=== PATIENT | female | born 1995 | race Hispanic/Latino ===

== ENCOUNTER 2018-09-01 07:52 | Inpatient (IN) | payer MEDICAID ==
[2018-09-01] MEDS ORDERED: Nalbuphine 20 MG/ML 1 ML Syringe IVPUSH PRN (14:42)
[2018-09-01] MEDS ORDERED: Sodium Chloride 0.9% 10 ML Syringe FLUSH PRN (14:42)
[2018-09-01] MEDS ORDERED: Ondansetron 4 MG/2 ML SDV IVPUSH PRN (14:42)
[2018-09-01] MEDS ORDERED: Oxytocin/Lactated Ringers 10 UNIT/1,000 ML BAG IV SCH ×2 (14:45)
--- NOTE | 2018-09-01 17:38 | PCM.LDHP ---
L&D History of Present Illness - General Date of Service: 09/01/18 Admit Problem/Dx: Patient Status Order with Admit Dx/Problem 09/01/18 14:53 Patient Status [ADT] Routine Admission Diagnosis/Problem Admission Diagnosis/Problem Source of Information: Patient History Limitations: Reports: No Limitations - History of Present Illness Introduction:: Patient is a 22 y/o at 37 0/7 wks who presents for IOL for gestational HTN. Last notable for preeclampsia at 33 weeks requiring IOL. Has been doing well this . Last week had an upper limit of normal BP. Today in clinic had 2 mild range BP's. Feeling well overall. Notes good FM. No other concerns - Related Data Allergies/Adverse Reactions: Allergies Allergy/AdvReac Type Severity Reaction Status Date / Time No Known Allergies Allergy Verified 09/01/18 18:08 Past Medical History Cardiovascular History: Reports: Other (See Below) (Hx of preeclampsia) [employer]ACHINE History: Reports: : 2 Para: 1 - Past Surgical History Other Surgical History Comment: Denies surgical history Social & Family History - Family History Family Medical History: Noncontributory - Tobacco Use Smoking Status *Q: Never Smoker Second Hand Smoke Exposure: No - Caffeine Use Caffeine Use: Reports: None - Alcohol Use Alcohol Use History: No - Recreational Drug Use Recreational Drug Use: No H&P Review of Systems - Review of Systems: Review Of Systems: See Below General: Reports: No Symptoms Pulmonary: Reports: No Symptoms Cardiovascular: Reports: No Symptoms Gastrointestinal: Reports: No Symptoms Genitourinary: Reports: No Symptoms Musculoskeletal: Reports: No Symptoms Psychiatric: Reports: No Symptoms Neurological: Reports: No Symptoms L&D Exam - Exam Exam: See Below - Vital Signs Vital Signs: Last Vital Signs Temp 36.4 C 09/01/18 14:58 Pulse 78 09/01/18 14:58 Resp 14 09/01/18 14:58 BP 128/84 09/01/18 14:58 Pulse Ox 97 09/01/18 14:58 Weight: 70.307 kg - OB Specific Contraction Intensity: Irritability Movement: Active Heart Tones: Present Heart Tones per Min: 140 Heart Rate (FHR) Variability: Moderate (6-25 bmp) Presentation: Vertex - Peraza Score Peraza Score Cervix Position: Midposition Peraza Score Consistency: Soft Peraza Score Effacement: 51-70% Peraza Score Dilation: 1-2 cm Peraza Score Infant's Station: -2 Peraza Score Total: 7 - Exam General: Alert, Oriented, Cooperative Lungs: Clear to Auscultation, Normal Respiratory Effort Cardiovascular: Regular Rate, Regular Rhythm GI/Abdominal Exam: Soft, Non-Tender Genitourinary: Normal external exam Extremities: Normal Inspection Skin: Warm, Dry, Intact - Patient Data Lab Results Last 24 hrs: Laboratory Results - last 24 hr 09/01/18 09/01/18 09/01/18 Range/Units 15:10 15:13 15:15 WBC 12.72 H (3.98-10.04) K/mm3 RBC 4.44 (3.98-5.22) M/mm3 Hgb 13.8 (11.2-15.7) gm/L Hct 40.3 (34.1-44.9) % MCV 90.8 (79.4-94.8) fl MCH 31.1 (25.6-32.2) pg MCHC 34.2 (32.2-35.5) g/dl RDW Std Deviation 42.1 (36.4-46.3) fL Plt Count 257 (182-369) K/mm3 MPV 9.0 L (9.4-12.3) fl Neut % (Auto) 77.4 H (34.0-71.1) % Lymph % (Auto) 13.4 L (19.3-51.7) % [place] % (Auto) 6.7 (4.7-12.5) % Eos % (Auto) 1.5 (0.7-5.8) Baso % (Auto) 0.2 (0.1-1.2) % Neut # (Auto) 9.84 H (1.56-6.13) K/mm3 Lymph # (Auto) 1.71 (1.18-3.74) K/mm3 [place] # (Auto) 0.85 H (0.24-0.36) K/mm3 Eos # (Auto) 0.19 (0.04-0.36) K/mm3 Baso # (Auto) 0.03 (0.01-0.08) K/mm3 RPR Non-reactive (NONREACTIVE) Blood Type O POSITIVE Gel Antibody Screen Negative Result Diagrams: 09/01/18 15:13 09/01/18 15:10 - Problem List (1) 37 weeks gestation of SNOMED Code(s): 48720885 ICD Code: Z3A.37 - 37 WEEKS GESTATION OF Status: Acute Current Visit: Yes (2) Gestational hypertension SNOMED Code(s): 010602113 ICD Code: O13.9 - GESTATIONAL HTN W/O SIGNIFICANT PROTEINURIA, UNSP TRIMESTER Status: Acute Current Visit: Yes Qualifiers: Trimester: third trimester Qualified Code(s): O13.3 - Gestational [ -induced] hypertension without significant proteinuria, third trimester (3) History of pre-eclampsia in prior , currently SNOMED Code(s): 361442991750068, 326631057357306 ICD Code: O09.299 - SUPRVSN OF PREG W POOR REPRODCTV OR OBSTET HISTORY, UNSP TRI Status: Acute Current Visit: Yes (4) GBS (group B Streptococcus carrier), +RV culture, currently SNOMED Code(s): 3148873529770, 161553137, 5536877497688 ICD Code: O99.820 - STREPTOCOCCUS B CARRIER STATE COMPLICATING Status: Acute Current Visit: Yes Problem List Initiated/Reviewed/Updated: Yes Orders Last 24hrs: Active Orders 24 hr Category Date Time Status Patient Status [ADT] Routine ADT 09/01/18 14:53 Active Activity as Tolerated [RC] PFP Care 09/01/18 14:53 Active Communication Order [RC] ASDIRECTED Care 09/01/18 14:53 Active Heart Tones [RC] ASDIRECTED Care 09/01/18 14:54 Active Non Stress Test [RC] PER UNIT ROUTINE Care 09/01/18 14:53 Active Notify Provider [RC] PFP Care 09/01/18 14:53 Active Notify Provider [RC] PRN Care 09/01/18 14:53 Active Peripheral IV Care [RC] . DIRECTED Care 09/01/18 14:54 Active Vital Signs [RC] PER UNIT ROUTINE Care 09/01/18 14:53 Active Regular Diet [DIET] Diet 09/01/18 Lunch Active ALANINE AMINOTRANSFERASE,ALT [CHEM] Routine Lab 09/01/18 17:37 Ordered ASPARTATE AMNIOTRANSFERASE,AST [CHEM] Routine Lab 09/01/18 17:37 Ordered CREATININE W/GFR [CHEM] Routine Lab 09/01/18 17:37 Ordered PATIENT RETYPE [BBK] Routine Lab 09/01/18 16:28 Results PROTEIN/CREATININE RATIO,URINE [URCHEM] Routine Lab 09/01/18 17:37 Ordered Lactated Ringers [Ringers, Lactated] 1,000 ml Med 09/01/18 14:45 Active IV ASDIRECTED Nalbuphine [Nubain] Med 09/01/18 14:42 Ordered 10 mg IVPUSH Q2H PRN Ondansetron [Zofran] Med 09/01/18 14:42 Ordered 4 mg IVPUSH Q4H PRN Oxytocin/Lactated Ringers [Pitocin in LR 10 Units/1,000 Med 09/01/18 14:45 Ordered ML] 10 unit in 1,000 ml IV .CONTINUOUS Oxytocin/Lactated Ringers [Pitocin in LR 10 Units/1,000 Med 09/01/18 14:45 Ordered ML] 10 unit in 1,000 ml IV TITRATE Penicillin G Potassium [Pfizerpen] 2.5 millunits [facility] 09/01/18 14:45 Ordered Sodium Chloride 0.9% [Normal Saline] 100 ml IV Q4H Penicillin G Potassium [Pfizerpen] 5 millunits [facility] 09/01/18 14:45 Ordered Sodium Chloride 0.9% [Normal Saline] 100 ml IV ONETIME Sodium Chloride 0.9% [Saline Flush] [facility] 09/01/18 14:42 Ordered 10 ml FLUSH ASDIRECTED PRN Electronic Heart Tones Ext w TOCO [WOMSER] Ot 09/01/18 14:53 Ordered Routine Electronic Heart Tones Internal [WOMSER] Per Unit Ot 09/01/18 14:53 Ordered Routine Peripheral IV Insertion Adult [OM.PC] Routine Oth 09/01/18 14:53 Ordered Resuscitation Status Routine Resus Stat 09/01/18 14:42 Ordered Medication Orders Lactated Ringer's (Ringers, Lactated) 1,000 mls @ 100 mls/hr IV ASDIRECTED MARCK Oxytocin/Lactated Ringer's (Pitocin In Lr 10 Units/1,000 Ml) 10 unit in 1,000 mls @ 12 mls/hr IV TITRATE MARCK; Protocol Oxytocin/Lactated Ringer's (Pitocin In Lr 10 Units/1,000 Ml) 10 unit in 1,000 mls @ 500 mls/hr IV .CONTINUOUS MARCK Penicillin G Potassium 5 (millunits/ Sodium Chloride) 100 mls @ 55 mls/hr IV ONETIME MARCK Penicillin G Potassium 2.5 (millunits/ Sodium Chloride) 100 mls @ 55 mls/hr IV Q4H MARCK Nalbuphine HCl (Nubain) 10 mg IVPUSH Q2H PRN PRN Reason: pain Ondansetron HCl (Zofran) 4 mg IVPUSH Q4H PRN PRN Reason: Nausea/Vomiting Sodium Chloride (Saline Flush) 10 ml FLUSH ASDIRECTED PRN PRN Reason: Keep Vein Open Assessment/Plan Comment:: 22 y/o at 37 0/7 wks who presents for IOL for gestational HTN. * Baseline labs * GBS positive, will start PCN * Pitocin to be started in induction, eventually AROM * Pain management per patient preference * Anticipate
[2018-09-01] MEDS ORDERED: Penicillin G Potassium 5 MILLUNITS in Sodium Chloride 0.9% 100 ML IV ONE (19:15)
[2018-09-01] MEDS: Lactated Ringers 1,000 ML IV SCH (19:59)
[2018-09-02] MEDS: Penicillin G Potassium 2.5 MILLUNITS in Sodium Chloride 0.9% 100 ML IV SCH ×3 (00:40→20:59)
[2018-09-02] MEDS ORDERED: Bupivacaine 0.25% 10 ML SDV ONE (06:00)
[2018-09-02] MEDS ORDERED: Ondansetron 4 MG/2 ML SDV IVPUSH PRN (06:29)
[2018-09-02] MEDS ORDERED: fentaNYL 100 MCG/2 ML SDV ONE (06:29)
[2018-09-02] MEDS ORDERED: fentaNYL/Bupivacaine-NS 2 MCG/ML-0.125%/PF 100 ML Bag EPIDUR PRN (06:29)
[2018-09-02] MEDS ORDERED: diphenhydrAMINE 50 MG/ML SDV IVPUSH PRN (06:29)
[2018-09-02] MEDS ORDERED: ePHEDrine 50 MG/ML SDV IVPUSH PRN (06:29)
[2018-09-02] MEDS ORDERED: fentaNYL 100 MCG/2 ML SDV EPIDUR PRN (06:29)
[2018-09-02] MEDS: Lactated Ringers 1,000 ML IV SCH (06:45)
--- NOTE | 2018-09-02 07:01 | PCM.PREANE ---
Preanesthetic Assessment - Anesthesia/Transfusion/Family Hx Anesthesia History: Prior Anesthesia Without Reaction Transfusion History: No Prior Transfusion(s) - Review of Systems General: No Symptoms Pulmonary: No Symptoms Cardiovascular: No Symptoms Gastrointestinal: No Symptoms Neurological: No Symptoms Other: Reports: None - Physical Assessment Pulse: 93 O2 Sat by Pulse Oximetry: 97 Respiratory Rate: 14 Blood Pressure: 132/77 Temperature: 36.6 C Vital Signs: Last Vital Signs Temp 36.6 C 09/01/18 20:02 Pulse 93 09/01/18 20:02 Resp 14 09/01/18 20:02 BP 132/77 09/01/18 20:02 Pulse Ox 97 09/01/18 20:02 Height: 1.55 m Weight: 70.307 kg ASA Class: 2 Mental Status: Alert & Oriented x3 Airway Class: Mallampati = 1 Dentition: Reports: Normal Dentition Thyro-Mental Finger Breadths: 3 Mouth Opening Finger Breadths: 3 ROM/Head Extension: Full Lungs: Clear to Auscultation, Normal Respiratory Effort Cardiovascular: Regular Rate, Regular Rhythm - Lab Values: Laboratory Last Values WBC 12.72 K/mm3 (3.98-10.04) H 09/01/18 15:13 RBC 4.44 M/mm3 (3.98-5.22) 09/01/18 15:13 Hgb 13.8 gm/L (11.2-15.7) 09/01/18 15:13 Hct 40.3 % (34.1-44.9) 09/01/18 15:13 MCV 90.8 fl (79.4-94.8) 09/01/18 15:13 MCH 31.1 pg (25.6-32.2) 09/01/18 15:13 MCHC 34.2 g/dl (32.2-35.5) 09/01/18 15:13 RDW Std Deviation 42.1 fL (36.4-46.3) 09/01/18 15:13 Plt Count 257 K/mm3 (182-369) 09/01/18 15:13 MPV 9.0 fl (9.4-12.3) L 09/01/18 15:13 Neut % (Auto) 77.4 % (34.0-71.1) H 09/01/18 15:13 Lymph % (Auto) 13.4 % (19.3-51.7) L 09/01/18 15:13 [place] % (Auto) 6.7 % (4.7-12.5) 09/01/18 15:13 Eos % (Auto) 1.5 (0.7-5.8) 09/01/18 15:13 Baso % (Auto) 0.2 % (0.1-1.2) 09/01/18 15:13 Neut # (Auto) 9.84 K/mm3 (1.56-6.13) H 09/01/18 15:13 Lymph # (Auto) 1.71 K/mm3 (1.18-3.74) 09/01/18 15:13 [place] # (Auto) 0.85 K/mm3 (0.24-0.36) H 09/01/18 15:13 Eos # (Auto) 0.19 K/mm3 (0.04-0.36) 09/01/18 15:13 Baso # (Auto) 0.03 K/mm3 (0.01-0.08) 09/01/18 15:13 Creatinine 0.6 mg/dL (0.55-1.02) 09/01/18 15:10 Est Cr Clr Drug Dosing 110.04 mL/min 09/01/18 15:10 Estimated GFR (MDRD) > 60 mL/min (>60) 09/01/18 15:10 AST 19 U/L (15-37) 09/01/18 15:10 ALT 26 U/L (14-59) 09/01/18 15:10 Ur Random Creatinine 116.7 mg/dL (30.0-125.0) 09/01/18 22:40 U Random Total Protein 15.5 mg/dL (0.0-11.8) H 09/01/18 22:40 Protein/Creatinin Ratio 132.8 mg/g (0-149) 09/01/18 22:40 RPR Non-reactive (NONREACTIVE) 09/01/18 15:15 Blood Type O POSITIVE 09/01/18 15:10 Gel Antibody Screen Negative 09/01/18 15:10 - Allergies Allergies/Adverse Reactions: Allergies Allergy/AdvReac Type Severity Reaction Status Date / Time No Known Allergies Allergy Verified 09/01/18 18:08 - Acknowledgements Anesthesia Type Planned: Epidural Pt an Appropriate Candidate for the Planned Anesthesia: Yes Alternatives and Risks of Anesthesia Discussed w Pt/Guardian: Yes Pt/Guardian Understands and Agrees with Anesthesia Plan: Yes PreAnesthesia Questionnaire - Past Health History Medical/Surgical History: Denies Medical/Surgical History Cardiovascular History: Reports: Other (See Below) (Hx of preeclampsia) 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: - Past Surgical History Other Surgical History Comment: Denies surgical history - SUBSTANCE USE Smoking Status *Q: Never Smoker Second Hand Smoke Exposure: No Recreational Drug Use History: No - CURRENT (IN HOUSE) MEDS Current Meds: Current Medications Diphenhydramine HCl (Benadryl) 25 mg IVPUSH Q6H PRN PRN Reason: Pruritis Ephedrine Sulfate (Ephedrine Sulfate) 5 mg IVPUSH ASDIRECTED PRN PRN Reason: Hypotension Fentanyl (Sublimaze) 100 mcg EPIDUR ONETIME PRN PRN Reason: Pain Last Admin: 09/02/18 06:57 Dose: 100 mcg Fentanyl/Bupivacaine HCl ([id number]-Jcyha-Hd 2 Mcg/Ml-0.125%) 100 ml EPIDUR ASDIRECTED PRN PRN Reason: Abdominal Pain Last Admin: 09/02/18 06:58 Dose: 100 ml Lactated Ringer's (Ringers, Lactated) 1,000 mls @ 100 mls/hr IV ASDIRECTED MARCK Last Admin: 09/02/18 06:45 Dose: 100 mls/hr Oxytocin/Lactated Ringer's (Pitocin In Lr 10 Units/1,000 Ml) 10 unit in 1,000 mls @ 12 mls/hr IV TITRATE AMRCK; Protocol Last Titration: 09/02/18 03:10 Dose: 6 munits/min, 36 mls/hr Oxytocin/Lactated Ringer's (Pitocin In Lr 10 Units/1,000 Ml) 10 unit in 1,000 mls @ 500 mls/hr IV .CONTINUOUS MARCK Penicillin G Potassium 2.5 (millunits/ Sodium Chloride) 100 mls @ 55 mls/hr IV Q4H MARCK Last Admin: 09/02/18 04:22 Dose: 55 mls/hr Nalbuphine HCl (Nubain) 10 mg IVPUSH Q2H PRN PRN Reason: pain Ondansetron HCl (Zofran) 4 mg IVPUSH Q4H PRN PRN Reason: Nausea/Vomiting Ondansetron HCl (Zofran) 4 mg IVPUSH ONETIME PRN PRN Reason: Nausea/Vomiting Sodium Chloride (Saline Flush) 10 ml FLUSH ASDIRECTED PRN PRN Reason: Keep Vein Open Discontinued Medications Fentanyl (Sublimaze) Confirm Administered Dose 100 mcg .ROUTE .STK-MED ONE Stop: 09/02/18 06:30 Last Admin: 09/02/18 06:46 Dose: Not Given Penicillin G Potassium 5 (millunits/ Sodium Chloride) 100 mls @ 55 mls/hr IV ONETIME ONE Stop: 09/01/18 21:04 Last Admin: 09/01/18 19:59 Dose: 55 mls/hr
--- NOTE | 2018-09-02 08:02 | PCM.DEL ---
L & D Note - General Info Date of Service: 09/02/18 - Delivery Note Labor: Induced by ARM, Induced by Oxytocin Delivery Outcome: Livebirth Infant Delivery Method: Spontaneous Vaginal Delivery-Single Infant Delivery Mode: Spontaneous Presentation: Left Occiput Anterior (GARRY) Nuchal Cord: None Anesthesia Type: Epidural Amniotic Fluid Description: Clear Episiotomy Type: None Laceration: None Placenta: Intact, Spontaneous Cord: 3 Vessels Estimated Blood Loss: 200 : Bulb Syringe, Stimulated, Warmed, [place] Used, Warmer Used Delivery Comments (Free Text/Narrative):: Patient found to be complete an began pushing. With maternal pushing effort head delivered from an GARRY presentation. No nuchal cord present. With gentle downward traction the shoulders and body delivered. Infant placed on maternal abdomen. Cord clamped and cut. Cord blood obtained. Placenta allowed time to separate and expelled intact. Inspection of the perineum showed no lacerations - General Info Date of Service: 09/02/18 - Patient Data Vitals - Most Recent: Last Vital Signs Temp 36.6 C 09/02/18 07:00 Pulse 93 09/02/18 07:00 Resp 14 09/02/18 07:00 BP 132/77 09/02/18 07:00 Pulse Ox 97 09/02/18 07:00 Weight - Most Recent: 70.307 kg Lab Results Last 24 Hours: Laboratory Results - last 24 hr 09/01/18 09/01/18 09/01/18 Range/Units 15:10 15:10 15:13 WBC 12.72 H (3.98-10.04) K/mm3 RBC 4.44 (3.98-5.22) M/mm3 Hgb 13.8 (11.2-15.7) gm/L Hct 40.3 (34.1-44.9) % MCV 90.8 (79.4-94.8) fl MCH 31.1 (25.6-32.2) pg MCHC 34.2 (32.2-35.5) g/dl RDW Std Deviation 42.1 (36.4-46.3) fL Plt Count 257 (182-369) K/mm3 MPV 9.0 L (9.4-12.3) fl Neut % (Auto) 77.4 H (34.0-71.1) % Lymph % (Auto) 13.4 L (19.3-51.7) % [place] % (Auto) 6.7 (4.7-12.5) % Eos % (Auto) 1.5 (0.7-5.8) Baso % (Auto) 0.2 (0.1-1.2) % Neut # (Auto) 9.84 H (1.56-6.13) K/mm3 Lymph # (Auto) 1.71 (1.18-3.74) K/mm3 [place] # (Auto) 0.85 H (0.24-0.36) K/mm3 Eos # (Auto) 0.19 (0.04-0.36) K/mm3 Baso # (Auto) 0.03 (0.01-0.08) K/mm3 Creatinine 0.6 (0.55-1.02) mg/dL Est Cr Clr Drug Dosing 110.04 mL/min Estimated GFR (MDRD) > 60 (>60) mL/min AST 19 (15-37) U/L ALT 26 (14-59) U/L Ur Random Creatinine (30.0-125.0) mg/dL U Random Total Protein (0.0-11.8) mg/dL Protein/Creatinin Ratio (0-149) mg/g RPR (NONREACTIVE) Blood Type O POSITIVE Gel Antibody Screen Negative 09/01/18 09/01/18 Range/Units 15:15 22:40 WBC (3.98-10.04) K/mm3 RBC (3.98-5.22) M/mm3 Hgb (11.2-15.7) gm/L Hct (34.1-44.9) % MCV (79.4-94.8) fl MCH (25.6-32.2) pg MCHC (32.2-35.5) g/dl RDW Std Deviation (36.4-46.3) fL Plt Count (182-369) K/mm3 MPV (9.4-12.3) fl Neut % (Auto) (34.0-71.1) % Lymph % (Auto) (19.3-51.7) % [place] % (Auto) (4.7-12.5) % Eos % (Auto) (0.7-5.8) Baso % (Auto) (0.1-1.2) % Neut # (Auto) (1.56-6.13) K/mm3 Lymph # (Auto) (1.18-3.74) K/mm3 [place] # (Auto) (0.24-0.36) K/mm3 Eos # (Auto) (0.04-0.36) K/mm3 Baso # (Auto) (0.01-0.08) K/mm3 Creatinine (0.55-1.02) mg/dL Est Cr Clr Drug Dosing mL/min Estimated GFR (MDRD) (>60) mL/min AST (15-37) U/L ALT (14-59) U/L Ur Random Creatinine 116.7 (30.0-125.0) mg/dL U Random Total Protein 15.5 H (0.0-11.8) mg/dL Protein/Creatinin Ratio 132.8 (0-149) mg/g RPR Non-reactive (NONREACTIVE) Blood Type Gel Antibody Screen Med Orders - Current: Current Medications Diphenhydramine HCl (Benadryl) 25 mg IVPUSH Q6H PRN PRN Reason: Pruritis Ephedrine Sulfate (Ephedrine Sulfate) 5 mg IVPUSH ASDIRECTED PRN PRN Reason: Hypotension Fentanyl (Sublimaze) 100 mcg EPIDUR ONETIME PRN PRN Reason: Pain Last Admin: 09/02/18 06:57 Dose: 100 mcg Fentanyl/Bupivacaine HCl (Xuvvgiih-Cswjc-Yj 2 Mcg/Ml-0.125%) 100 ml EPIDUR ASDIRECTED PRN PRN Reason: Abdominal Pain Last Admin: 09/02/18 06:58 Dose: 100 ml Lactated Ringer's (Ringers, Lactated) 1,000 mls @ 100 mls/hr IV ASDIRECTED MARCK Last Admin: 09/02/18 06:45 Dose: 100 mls/hr Oxytocin/Lactated Ringer's (Pitocin In Lr 10 Units/1,000 Ml) 10 unit in 1,000 mls @ 12 mls/hr IV TITRATE MARCK; Protocol Last Titration: 09/02/18 03:10 Dose: 6 munits/min, 36 mls/hr Oxytocin/Lactated Ringer's (Pitocin In Lr 10 Units/1,000 Ml) 10 unit in 1,000 mls @ 500 mls/hr IV .CONTINUOUS MARCK Penicillin G Potassium 2.5 (millunits/ Sodium Chloride) 100 mls @ 55 mls/hr IV Q4H MARCK Last Admin: 09/02/18 04:22 Dose: 55 mls/hr Nalbuphine HCl (Nubain) 10 mg IVPUSH Q2H PRN PRN Reason: pain Ondansetron HCl (Zofran) 4 mg IVPUSH Q4H PRN PRN Reason: Nausea/Vomiting Ondansetron HCl (Zofran) 4 mg IVPUSH ONETIME PRN PRN Reason: Nausea/Vomiting Sodium Chloride (Saline Flush) 10 ml FLUSH ASDIRECTED PRN PRN Reason: Keep Vein Open Discontinued Medications Fentanyl (Sublimaze) Confirm Administered Dose 100 mcg .ROUTE .STK-MED ONE Stop: 09/02/18 06:30 Last Admin: 09/02/18 06:46 Dose: Not Given Penicillin G Potassium 5 (millunits/ Sodium Chloride) 100 mls @ 55 mls/hr IV ONETIME ONE Stop: 09/01/18 21:04 Last Admin: 09/01/18 19:59 Dose: 55 mls/hr - Problem List & Annotations (1) 37 weeks gestation of SNOMED Code(s): 59963482 Code(s): Z3A.37 - 37 WEEKS GESTATION OF Status: Acute Current Visit: Yes (2) Gestational hypertension SNOMED Code(s): 661221787 Code(s): O13.9 - GESTATIONAL HTN W/O SIGNIFICANT PROTEINURIA, UNSP TRIMESTER Status: Acute Current Visit: Yes Qualifiers: Trimester: third trimester Qualified Code(s): O13.3 - Gestational [ -induced] hypertension without significant proteinuria, third trimester (3) History of pre-eclampsia in prior , currently SNOMED Code(s): 025065283742210, 729197652425569 Code(s): O09.299 - SUPRVSN OF PREG W POOR REPRODCTV OR OBSTET HISTORY, UNSP TRI Status: Acute Current Visit: Yes (4) GBS (group B Streptococcus carrier), +RV culture, currently SNOMED Code(s): 7455844632623, 232552549, 2865545411376 Code(s): O99.820 - STREPTOCOCCUS B CARRIER STATE COMPLICATING Status: Acute Current Visit: Yes (5) Vaginal delivery SNOMED Code(s): 932553556 Code(s): O80 - ENCOUNTER FOR FULL-TERM UNCOMPLICATED DELIVERY Status: Acute Current Visit: Yes - Problem List Review Problem List Initiated/Reviewed/Updated: Yes - My Orders Last 24 Hours: My Active Orders 09/01/18 14:42 Nalbuphine [Nubain] 10 mg IVPUSH Q2H PRN Ondansetron [Zofran] 4 mg IVPUSH Q4H PRN Sodium Chloride 0.9% [Saline Flush] 10 ml FLUSH ASDIRECTED PRN Resuscitation Status Routine 09/01/18 14:45 Lactated Ringers [Ringers, Lactated] 1,000 ml IV ASDIRECTED Oxytocin/Lactated Ringers [Pitocin in LR 10 Units/1,000 ML] 10 unit in 1,000 ml IV .CONTINUOUS Oxytocin/Lactated Ringers [Pitocin in LR 10 Units/1,000 ML] 10 unit in 1,000 ml IV TITRATE 09/01/18 14:53 Patient Status [ADT] Routine Activity as Tolerated [RC] PFP Communication Order [RC] ASDIRECTED Notify Provider [RC] PFP Notify Provider [RC] PRN Vital Signs [RC] PER UNIT ROUTINE Electronic Heart Tones Ext w TOCO [WOMSER] Routine Electronic Heart Tones Internal [WOMSER] Per Unit Routine Peripheral IV Insertion Adult [OM.PC] Routine 09/01/18 14:54 Heart Tones [RC] ASDIRECTED Peripheral IV Care [RC] . DIRECTED 09/01/18 16:28 PATIENT RETYPE [BBK] Routine 09/01/18 Lunch Regular Diet [DIET] 09/02/18 00:00 Penicillin G Potassium [Pfizerpen] 2.5 millunits Sodium Chloride 0.9% [Normal Saline] 100 ml IV Q4H - Assessment Assessment:: 22 y/o G2 now P1102 PPD#0 from at 37 1/7 wks - Plan Plan:: * Routine cares * Encourage breast feeding * Monitor BP's closely * Discharge home in 1-2 day s
[2018-09-02] MEDS ORDERED: Docusate Sodium 100 MG Cap PO PRN (08:42)
[2018-09-02] MEDS ORDERED: Acetaminophen 325 MG Tab PO PRN (08:42)
[2018-09-02] MEDS ORDERED: Lanolin 100% Cream 7 GM Tube TOP PRN (08:42)
[2018-09-02] MEDS ORDERED: Benzocaine/Menthol 20%-0.5% Spray 56 GM Canister TOP PRN (08:42)
[2018-09-02] MEDS ORDERED: Witch Hazel Medicated Pads 40/Jar TOP PRN (08:42)
[2018-09-02] MEDS: Ibuprofen 600 MG Tab PO PRN ×2 (16:08→21:56)
--- NOTE | 2018-09-03 07:22 | PCM.PNPP ---
- General Info Date of Service: 09/03/18 Functional Status: Reports: Pain Controlled, Tolerating Diet, Ambulating, Urinating - Review of Systems General: Reports: No Symptoms Pulmonary: Reports: No Symptoms Cardiovascular: Reports: No Symptoms Gastrointestinal: Reports: No Symptoms, Hematochezia Neurological: Denies: Headache - Patient Data Vital Signs - Most Recent: Last Vital Signs Temp 36.6 C 09/03/18 03:28 Pulse 67 09/03/18 03:28 Resp 14 09/03/18 03:28 BP 119/69 09/03/18 03:28 Pulse Ox 100 09/03/18 03:28 Weight - Most Recent: 70.307 kg I&O - Last 24 Hours: Intake & Output 09/02/18 09/03/18 09/03/18 22:59 06:59 14:59 Intake Total 320 Balance 320 Med Orders - Current: Current Medications Acetaminophen (Tylenol) 650 mg PO Q4H PRN PRN Reason: mild pain or fever Benzocaine/Menthol (Dermoplast Pain Relief [place]) 0 gm TOP ASDIRECTED PRN PRN Reason: Perineal Comfort Measure Last Admin: 09/02/18 10:52 Dose: 1 can Docusate Sodium (Colace) 100 mg PO BID PRN PRN Reason: Constipation Emollient Ointment (Lansinoh Hpa) 0 gm TOP ASDIRECTED PRN PRN Reason: Sore Nipples Ibuprofen (Motrin) 600 mg PO Q6H PRN PRN Reason: Mild pain or fever Last Admin: 09/02/18 21:56 Dose: 600 mg Witch Marli (Tucks) 1 pad TOP ASDIRECTED PRN PRN Reason: Perineal Comfort Measure Last Admin: 09/02/18 10:52 Dose: 1 tub Discontinued Medications Bupivacaine HCl (Sensorcaine-Mpf 0.25%) 10 ml .ROUTE .STK-MED ONE Stop: 09/02/18 06:01 Diphenhydramine HCl (Benadryl) 25 mg IVPUSH Q6H PRN PRN Reason: Pruritis Ephedrine Sulfate (Ephedrine Sulfate) 5 mg IVPUSH ASDIRECTED PRN PRN Reason: Hypotension Fentanyl (Sublimaze) 100 mcg EPIDUR ONETIME PRN PRN Reason: Pain Last Admin: 09/02/18 06:57 Dose: 100 mcg Fentanyl (Sublimaze) Confirm Administered Dose 100 mcg .ROUTE .STK-MED ONE Stop: 09/02/18 06:30 Last Admin: 09/02/18 06:46 Dose: Not Given Fentanyl/Bupivacaine HCl (Jqhpycae-Srdtm-Sr 2 Mcg/Ml-0.125%) 100 ml EPIDUR ASDIRECTED PRN PRN Reason: Abdominal Pain Last Admin: 09/02/18 06:58 Dose: 100 ml Lactated Ringer's (Ringers, Lactated) 1,000 mls @ 100 mls/hr IV ASDIRECTED MARCK Last Admin: 09/02/18 06:45 Dose: 100 mls/hr Oxytocin/Lactated Ringer's (Pitocin In Lr 10 Units/1,000 Ml) 10 unit in 1,000 mls @ 12 mls/hr IV TITRATE MARCK; Protocol Last Titration: 09/02/18 07:53 Dose: 999 mls/hr Oxytocin/Lactated Ringer's (Pitocin In Lr 10 Units/1,000 Ml) 10 unit in 1,000 mls @ 500 mls/hr IV .CONTINUOUS MARCK Penicillin G Potassium 5 (millunits/ Sodium Chloride) 100 mls @ 55 mls/hr IV ONETIME ONE Stop: 09/01/18 21:04 Last Admin: 09/01/18 19:59 Dose: 55 mls/hr Penicillin G Potassium 2.5 (millunits/ Sodium Chloride) 100 mls @ 55 mls/hr IV Q4H MARCK Last Admin: 09/02/18 20:59 Dose: Not Given Nalbuphine HCl (Nubain) 10 mg IVPUSH Q2H PRN PRN Reason: pain Ondansetron HCl (Zofran) 4 mg IVPUSH Q4H PRN PRN Reason: Nausea/Vomiting Ondansetron HCl (Zofran) 4 mg IVPUSH ONETIME PRN PRN Reason: Nausea/Vomiting Sodium Chloride (Saline Flush) 10 ml FLUSH ASDIRECTED PRN PRN Reason: Keep Vein Open - Infant Interaction Disposition, : [place] in Room with Family Interaction: Holding Infant Feeding: Breastfed Infant; Nursed Well Support Person: Significant Other - Recovery Exam Fundal Tone: Firm Fundal Level: 2 Fingerbreadths Below Umbilicus Fundal Placement: Midline Lochia Amount: Small Lochia Color: Rubra/Red Perineum Description: Intact, Minimal Bruising/Swelling Episiotomy/Laceration: None Bladder Status: Voiding - Exam General: Alert, Oriented, Cooperative GI/Abdominal Exam: Soft, Non-Tender Extremities: Normal Inspection Skin: Warm, Dry, Intact - Problem List & Annotations (1) 37 weeks gestation of SNOMED Code(s): 33278857 Code(s): Z3A.37 - 37 WEEKS GESTATION OF Status: Acute (2) Gestational hypertension SNOMED Code(s): 828440549 Code(s): O13.9 - GESTATIONAL HTN W/O SIGNIFICANT PROTEINURIA, UNSP TRIMESTER Status: Acute Qualifiers: Trimester: third trimester Qualified Code(s): O13.3 - Gestational [ -induced] hypertension without significant proteinuria, third trimester (3) History of pre-eclampsia in prior , currently SNOMED Code(s): 274908807480810, 566607837326372 Code(s): O09.299 - SUPRVSN OF PREG W POOR REPRODCTV OR OBSTET HISTORY, UNSP TRI Status: Acute (4) GBS (group B Streptococcus carrier), +RV culture, currently SNOMED Code(s): 3170567381299, 617011215, 3533427185377 Code(s): O99.820 - STREPTOCOCCUS B CARRIER STATE COMPLICATING Status: Acute (5) Vaginal delivery SNOMED Code(s): 186994644 Code(s): O80 - ENCOUNTER FOR FULL-TERM UNCOMPLICATED DELIVERY Status: Acute - Problem List Review Problem List Initiated/Reviewed/Updated: Yes - My Orders Last 24 Hours: My Active Orders 09/02/18 08:42 Activity as Tolerated [RC] PER UNIT ROUTINE Vital Signs [RC] 09,15,21,03 Acetaminophen [Tylenol] 650 mg PO Q4H PRN Benzocaine/Menthol [Dermoplast Pain Relief [place]] See Dose Instructions TOP ASDIRECTED PRN Docusate Sodium [Colace] 100 mg PO BID PRN Ibuprofen [Motrin] 600 mg PO Q6H PRN Lanolin [Lansinoh HPA] See Dose Instructions TOP ASDIRECTED PRN Witch Marli [Tucks] 1 pad TOP ASDIRECTED PRN Assess Lochia [WOMSER] Per Unit Routine Assess Uterine Involution [WOMSER] Per Unit Routine Breast Pump [WOMSER] Per Unit Routine Heat Therapy [OM.PC] PRN Ice Therapy [OM.PC] Per Unit Routine Perineal Care [OM.PC] Per Unit Routine Peripheral IV Discontinue [OM.PC] Routine Sitz Bath [OM.PC] Per Unit Routine 09/02/18 Breakfast Regular Diet [DIET] 09/03/18 07:21 Ready for Discharge [RC] PER UNIT ROUTINE 09/03/18 08:42 Heat Therapy [OM.PC] PRN - Assessment Assessment:: 22 y/o G2 now P1102 PPD#1 from at 37 1/7 wks - Plan Plan:: * Routine cares * Encourage breast feeding * BP's have been normal to low mild range since delivery * Discharge home today
[2018-09-03] MEDS: Ibuprofen 600 MG Tab PO PRN (11:11)
--- NOTE | 2018-09-03 19:03 | PCM.DCSUM1 ---
Discharge Summary - Discharge Data Discharge Date: 09/03/18 Discharge Disposition: Home, Self-Care 01 Condition: Good - Discharge Diagnosis/Problem(s) (1) 37 weeks gestation of SNOMED Code(s): 89839750 ICD Code: Z3A.37 - 37 WEEKS GESTATION OF Status: Acute (2) Gestational hypertension SNOMED Code(s): 534247856 ICD Code: O13.9 - GESTATIONAL HTN W/O SIGNIFICANT PROTEINURIA, UNSP TRIMESTER Status: Acute Qualifiers: Trimester: third trimester Qualified Code(s): O13.3 - Gestational [ -induced] hypertension without significant proteinuria, third trimester (3) History of pre-eclampsia in prior , currently SNOMED Code(s): 227342431740186, 768966969379309 ICD Code: O09.299 - SUPRVSN OF PREG W POOR REPRODCTV OR OBSTET HISTORY, UNSP TRI Status: Acute (4) GBS (group B Streptococcus carrier), +RV culture, currently SNOMED Code(s): 3877443543999, 685619052, 7617413496610 ICD Code: O99.820 - STREPTOCOCCUS B CARRIER STATE COMPLICATING Status: Acute (5) Vaginal delivery SNOMED Code(s): 642700773 ICD Code: O80 - ENCOUNTER FOR FULL-TERM UNCOMPLICATED DELIVERY Status: Acute - Patient Summary/Data Complications: None Consults: NOne Recommended Follow-up Testing/Procedures: Follow up in 1 week for BP check and in 3 weeks for check Hospital Course: Patient is a 22 y/o who presented at 37 1/7 wks for IOL for gestational HTN. This was done with pitocin and ROM. She progressed well to complete dilation and underwent an uncomplicated . See delivery note. BP's remained normal to mild range. She was discharged home on PPD# 1 - Patient Instructions Diet: Regular Diet as Tolerated Activity: As Tolerated Activity, Other: Pelvic rest for 6 weeks Driving: May Drive Today Showering/Bathing: May Shower Showering/Bathing, Other: May Bathe Notify Provider of: Fever, Increased Pain, Swelling and Redness, Drainage, Nausea and/or Vomiting - Discharge Plan *PRESCRIPTION DRUG MONITORING PROGRAM REVIEWED*: Not Applicable *COPY OF PRESCRIPTION DRUG MONITORING REPORT IN PATIENT CRISTINA: Not Applicable Home Medications: Home Meds Docusate Sodium [Colace] 100 mg PO BID PRN cap 09/02/18 [Rx] Ibuprofen [Motrin] 600 mg PO Q6H PRN tablet 09/02/18 [Rx] PNV95/Ferrous Fumarate/FA [ Tablet] 1 each PO DAILY 09/02/18 [History] Referrals: Brit Negron MD [Primary Care Provider] - (1 week BP check 3 weeks for check) - Discharge Summary/Plan Comment DC Time >30 min.: No - Patient Data Vitals - Most Recent: Last Vital Signs Temp 36.6 C 09/03/18 08:13 Pulse 70 09/03/18 08:13 Resp 18 09/03/18 08:13 BP 112/71 09/03/18 08:13 Pulse Ox 95 09/03/18 08:13 Weight - Most Recent: 70.307 kg I&O - Last 24 hours: Intake & Output 09/03/18 09/03/18 09/03/18 06:59 14:59 22:59 Intake Total 120 Balance 120 Med Orders - Current: Current Medications Discontinued Medications Acetaminophen (Tylenol) 650 mg PO Q4H PRN PRN Reason: mild pain or fever Benzocaine/Menthol (Dermoplast Pain Relief [place]) 0 gm TOP ASDIRECTED PRN PRN Reason: Perineal Comfort Measure Last Admin: 09/02/18 10:52 Dose: 1 can Bupivacaine HCl (Sensorcaine-Mpf 0.25%) 10 ml .ROUTE .STK-MED ONE Stop: 09/02/18 06:01 Diphenhydramine HCl (Benadryl) 25 mg IVPUSH Q6H PRN PRN Reason: Pruritis Docusate Sodium (Colace) 100 mg PO BID PRN PRN Reason: Constipation Emollient Ointment (Lansinoh Hpa) 0 gm TOP ASDIRECTED PRN PRN Reason: Sore Nipples Ephedrine Sulfate (Ephedrine Sulfate) 5 mg IVPUSH ASDIRECTED PRN PRN Reason: Hypotension Fentanyl (Sublimaze) 100 mcg EPIDUR ONETIME PRN PRN Reason: Pain Last Admin: 09/02/18 06:57 Dose: 100 mcg Fentanyl (Sublimaze) Confirm Administered Dose 100 mcg .ROUTE .STK-MED ONE Stop: 09/02/18 06:30 Last Admin: 09/02/18 06:46 Dose: Not Given Fentanyl/Bupivacaine HCl (Kmwxnkkm-Tprrf-Qt 2 Mcg/Ml-0.125%) 100 ml EPIDUR ASDIRECTED PRN PRN Reason: Abdominal Pain Last Admin: 09/02/18 06:58 Dose: 100 ml Lactated Ringer's (Ringers, Lactated) 1,000 mls @ 100 mls/hr IV ASDIRECTED MARCK Last Admin: 09/02/18 06:45 Dose: 100 mls/hr Oxytocin/Lactated Ringer's (Pitocin In Lr 10 Units/1,000 Ml) 10 unit in 1,000 mls @ 12 mls/hr IV TITRATE MARCK; Protocol Last Titration: 09/02/18 07:53 Dose: 999 mls/hr Oxytocin/Lactated Ringer's (Pitocin In Lr 10 Units/1,000 Ml) 10 unit in 1,000 mls @ 500 mls/hr IV .CONTINUOUS MARCK Penicillin G Potassium 5 (millunits/ Sodium Chloride) 100 mls @ 55 mls/hr IV ONETIME ONE Stop: 09/01/18 21:04 Last Admin: 09/01/18 19:59 Dose: 55 mls/hr Penicillin G Potassium 2.5 (millunits/ Sodium Chloride) 100 mls @ 55 mls/hr IV Q4H MARCK Last Admin: 09/02/18 20:59 Dose: Not Given Ibuprofen (Motrin) 600 mg PO Q6H PRN PRN Reason: Mild pain or fever Last Admin: 09/03/18 11:11 Dose: 600 mg Nalbuphine HCl (Nubain) 10 mg IVPUSH Q2H PRN PRN Reason: pain Ondansetron HCl (Zofran) 4 mg IVPUSH Q4H PRN PRN Reason: Nausea/Vomiting Ondansetron HCl (Zofran) 4 mg IVPUSH ONETIME PRN PRN Reason: Nausea/Vomiting Sodium Chloride (Saline Flush) 10 ml FLUSH ASDIRECTED PRN PRN Reason: Keep Vein Open Witch Marli (Tucks) 1 pad TOP ASDIRECTED PRN PRN Reason: Perineal Comfort Measure Last Admin: 09/02/18 10:52 Dose: 1 tub
== END 2018-09-03 12:00 | disposition home or self-care (01) | DRG 807 ==
LOC: JD.OB 07:52 → OBSVTOIN 09-02 07:52 → JD.OB 09-02 07:53
PROVIDERS: ADMIT Obstetrics & Gynecology; ATTEND Obstetrics & Gynecology
PROC: 10E0XZZ Delivery of Products of Conception, External Approach (ICD-10-PCS; principal; 2018-09-02)
PROC: 10907ZC Drainage of Amniotic Fluid, Therapeutic from Products of Conception, Via Natural or Artificial Opening (ICD-10-PCS; 2018-09-02)
PROC: 3E033VJ Introduction of Other Hormone into Peripheral Vein, Percutaneous Approach (ICD-10-PCS; 2018-09-02)
PROC: 00HU33Z Insertion of Infusion Device into Spinal Canal, Percutaneous Approach (ICD-10-PCS; 2018-09-02)
PROC: 3E0R3BZ Introduction of Anesthetic Agent into Spinal Canal, Percutaneous Approach (ICD-10-PCS; 2018-09-02)
DX: O13.4 Gestational [pregnancy-induced] hypertension without significant proteinuria, complicating childbirth (principal); Z37.0 Single live birth; O99.820 Streptococcus B carrier state complicating pregnancy; Z3A.37 37 weeks gestation of pregnancy
CPT/HCPCS: 01967; 36415; 51701; 59025; 59409; 82565; 82570; 84156; 84450; 84460; 85025; 86592; 86850; 86900; 86901; A9270-GY; J2540; J2590; J3010; J3490; J7030; J7120

== ENCOUNTER 2023-04-10 11:43 | Inpatient (IN) | payer BC, MEDICAID ==
[2023-04-10] MEDS ORDERED: Nalbuphine HCl 10 MG/ 1ML Amp IVPUSH PRN (11:56)
[2023-04-10] MEDS ORDERED: Lidocaine 1% 50 ML MDV INJECT PRN (11:56)
[2023-04-10] MEDS ORDERED: Ondansetron 4 MG/2 ML SDV IVPUSH PRN (11:56)
[2023-04-10] MEDS ORDERED: Acetaminophen 325 MG Tab PO PRN (11:56)
[2023-04-10] MEDS ORDERED: Sodium Chloride 0.9% 10 ML Syringe FLUSH PRN (11:56)
[2023-04-10] MEDS ORDERED: Oxytocin/Lactated Ringers 30 UNIT/500 ML BAG IV SCH ×2 (12:00)
[2023-04-10] MEDS ORDERED: Ampicillin 2 GM in Sodium Chloride 0.9% 100 ML IV ONE (12:00)
[2023-04-10] MEDS: Lactated Ringers 1,000 ML IV SCH ×2 (12:30→15:13)
[2023-04-10 12:31] LABS: BASOPHILS PERCENT AUTO 0.3 % (0.0-1.0); EOSINOPHILS ABSOLUTE AUTO 0.2 K/mm3 (0.0-0.4); EOSINOPHILS PERCENT AUTO 1.3 % (0.0-6.0); HEMATOCRIT 39.4 % (37.0-47.0); HEMOGLOBIN 13.5 gm/dl (12.0-16.0); IMMATURE GRAN ABSOLUTE AUTO 0.12 K/mm3 (0.00-0.05); LYMPHOCYTES ABSOLUTE AUTO 1.5 K/mm3 (1.0-4.8); LYMPHOCYTES PERCENT AUTO 11.9 % (24.0-44.0); MEAN CORPUSCULAR HEMOGLOBIN 30.6 pg (28.0-32.0); MEAN CORPUSCULAR HGB CONC 34.3 g/dl (32.0-36.0); MEAN CORPUSCULAR VOLUME 89.3 fl (83.0-99.0); MEAN PLATELET VOLUME 9.5 fl (9.4-12.3); MONOCYTES ABSOLUTE AUTO 0.7 K/mm3 (0.0-0.8); MONOCYTES PERCENT AUTO 5.5 % (0.0-8.0); NEUTROPHILS ABSOLUTE AUTO 10.1 K/mm3 (1.8-7.7); PLATELET COUNT,PLT 225 K/mm3 (150-400); RED BLOOD CELL COUNT 4.41 M/mm3 (4.10-5.30); WHITE BLOOD CELL COUNT,WBC 12.61 K/mm3 (3.9-11.3)
[2023-04-10 12:58] LABS: CREATININE,URINE RAND 118.1 mg/dL (30.0-125.0); PROTEIN CREATININE RATIO,URINE 155.8 mg/g (0-149); PROTEIN,URINE RANDOM 18.4 mg/dL (0.0-11.8)
[2023-04-10 13:00] LABS: CREATININE 0.6 mg/dL (0.55-1.02); EST CRCL DRUG DOSING (CG) 110.4 mL/min
[2023-04-10] MEDS ORDERED: diphenhydrAMINE 50 MG/ML SDV IVPUSH PRN (15:46)
[2023-04-10] MEDS ORDERED: Bupivacaine/fentaNYL/NS 100 ML Bag EPIDUR PRN (15:46)
[2023-04-10] MEDS ORDERED: ePHEDrine 50 MG/ML SDV IVPUSH PRN (15:46)
[2023-04-10] MEDS ORDERED: fentaNYL 100 MCG/2 ML SDV EPIDUR PRN (15:46)
[2023-04-10] MEDS: Ampicillin 1 GM in Sodium Chloride 0.9% 100 ML IV SCH ×2 (15:53→20:02)
[2023-04-10] MEDS ORDERED: Sodium Chloride 0.9% 10 ML Syringe FLUSH SCH (21:00)
[2023-04-10] MEDS ORDERED: Witch Hazel Medicated Pads 40/Jar TOP PRN (21:50)
[2023-04-10] MEDS ORDERED: Benzocaine/Menthol 20%-0.5% Spray 78 GM Cannister TOP PRN (21:50)
[2023-04-11] MEDS: Ibuprofen 600 MG Tab PO PRN ×3 (03:34→17:26)
[2023-04-11] MEDS: Acetaminophen 325 MG Tab PO PRN ×2 (07:58→14:04)
[2023-04-11] MEDS: Docusate Sodium 100 MG Cap PO PRN (14:04)
[2023-04-12] MEDS: Docusate Sodium 100 MG Cap PO PRN (04:40)
[2023-04-12] MEDS: Ibuprofen 600 MG Tab PO PRN (04:40)
[2023-04-12] MEDS: Acetaminophen 325 MG Tab PO PRN (08:03)
== END 2023-04-12 10:40 | disposition home or self-care (01) | DRG 560 ==
LOC: JD.OB 11:43 → OBSVTOIN 21:17 → JD.OB 21:18
PROVIDERS: ADMIT Obstetrics & Gynecology; ATTEND Obstetrics & Gynecology
PROC: 10E0XZZ Delivery of Products of Conception, External Approach (ICD-10-PCS; principal; 2023-04-10)
PROC: 10907ZC Drainage of Amniotic Fluid, Therapeutic from Products of Conception, Via Natural or Artificial Opening (ICD-10-PCS; 2023-04-10)
PROC: 3E033VJ Introduction of Other Hormone into Peripheral Vein, Percutaneous Approach (ICD-10-PCS; 2023-04-10)
PROC: 3E0R3BZ Introduction of Anesthetic Agent into Spinal Canal, Percutaneous Approach (ICD-10-PCS; 2023-04-10)
PROC: 00HU33Z Insertion of Infusion Device into Spinal Canal, Percutaneous Approach (ICD-10-PCS; 2023-04-10)
PROC: 0HQ9XZZ Repair Perineum Skin, External Approach (ICD-10-PCS; 2023-04-10)
DX: O13.4 Gestational [pregnancy-induced] hypertension without significant proteinuria, complicating childbirth (principal); Z37.0 Single live birth; O99.824 Streptococcus B carrier state complicating childbirth; O70.0 First degree perineal laceration during delivery; O77.0 Labor and delivery complicated by meconium in amniotic fluid; Z3A.38 38 weeks gestation of pregnancy; Z98.890 Other specified postprocedural states
CPT/HCPCS: 36415; 51702; 59025; 59409; 82565; 82570; 84156; 84450; 84460; 85025; 86592; 86850; 86900; 86901; A9270-GY; J0290; J3010; J3490; J7120; J7999